=== PATIENT | male | born 1940 | race Caucasian/White ===

== ENCOUNTER → 2021-11-02 14:51 | Outpatient (CLI) | payer MEDICARE, SELFPAY | PROVIDERS: PCP Internal Medicine; Visit Provider Urology | DX: R30.0 Dysuria (principal); R31.29 Other microscopic hematuria; I70.90 Unspecified atherosclerosis; Z87.891 Personal history of nicotine dependence | CPT/HCPCS: 81002; 87086; 99213 ==

== ENCOUNTER → 2021-12-27 14:24 | Outpatient (CLI) | payer MEDICARE, SELFPAY ==
[2021-12-27 14:55] LABS: COVID19 -Nasal RAPID Negative (Negative)
== END ==
PROVIDERS: PCP Internal Medicine; Visit Provider Urology
DX: Z20.822 Contact with and (suspected) exposure to COVID-19 (principal); C67.1 Malignant neoplasm of dome of bladder; R31.29 Other microscopic hematuria; Z87.891 Personal history of nicotine dependence
CPT/HCPCS: 81002; 87635; 99215

== ENCOUNTER 2021-12-30 12:33 | Day surgery (SDC) | payer MEDICARE, SELFPAY ==
[2021-12-28 14:53] VITALS: BMI 29.2
[2021-12-30] VITALS (11 sets, daily range): BP systolic 152–169; BP diastolic 52–75; PULSE 47–58; RESP 15–18; TEMP 36.2–37.2; O2SAT 93–99; BMI 29.2
--- NOTE | 2021-12-30 | PATH_ITS ---
[facility] Accession Number: [id number] . 01 Material submitted: . bladder, dome - DOME OF BLADDER . 02 Diagnosis: Bladder, Dome, TURBT: Low-grade papillary urothelial carcinoma, noninvasive; see Cancer Case Summary. . . CASE CASE SUMMARY - URINARY BLADDER Procedure: TURBT. Tumor site: Dome. Histologic type: Papillary urothelial carcinoma, noninvasive. Histologic grade: Low grade. Tumor extent: Noninvasive papillary carcinoma. Lymphovascular invasion: Not identified. Muscularis propria presence: Muscularis propria not identified. MRV 01/02/2022 1354 Local . 02 Comment: As part of routine quality control, Dr. Rubi has reviewed this case and agrees with the diagnosis of low-grade papillary urothelial carcinoma. . 02 Electronically signed: . Fitz Ayala MD, PhD, Pathologist NPI- [id number] . 01 Gross description: . DOME OF BLADDER: Received in formalin are 3 fragment(s) of shay, soft tissue measuring 0.3 x 0.3 x 0.2 cm to 0.3 x 0.2 x 0.2 cm submitted entirely in 1 cassette(s) /CPE 12/31/2021 0851 Local . 02 Pathologist provided ICD-10: C67.9 . 02 CPT . 467270 Specimen Comment: A courtesy copy of this report has been sent to [phone] Performed at: 01 [facility] [address] [place] [address], [place], [place] [id number] MD Toy Marquez MD Phone: [phone] Performed at: 02 [facility] [address] [place], [place] [id number] MD Gina Rubi MD Phone: [phone]
[2021-12-30] MEDS: LACTATED RINGERS 1,000 ML 25 ML IV (13:21)
--- NOTE | 2021-12-30 13:37 | SUR.OPER ---
Lithotomy on padded OR bed, head on pillow, arms secured on padded arm boards at <90 degrees abduction. Legs secured in padded yellow fins stirrups.
--- NOTE | 2021-12-30 13:44 | PM.PREOP ---
Pre-operative Note COVID-19 COVID-19 status: Negative Result date/Date tested (Pos, Neg/Pending): 12/27/21 Criteria for continued procedure: Expected advancement of disease process, Possibility delay results in more complex future surgery or treatment, Delay expected to result in less-positive ultimate med/surg outcome and Non-surgical alternatives not available or appropriate per current SOC Interval Note History & Physical reviewed/Exam performed by Physician: Yes Changes to H&P: No
[2021-12-30] MEDS: CEFAZOLIN 2 GM/20 ML SYRINGE IV (13:50)
[2021-12-30] MEDS: BELLADONNA/OPIUM SUPPOSITORIES 1 EACH PR (14:01)
[2021-12-30] MEDS: mitoMYcin 20 MG in WATER FOR INJECTION 20 ML 240 ML INTRAVESIC (14:40)
--- NOTE | 2021-12-30 15:03 | P.OP_ITS ---
Procedure & Clinicians Procedure: Cystoscopy, transurethral resection of bladder tumor with cauterization and installation of mitomycin. Same procedure as scheduled: Yes Indications: This is an 81-year-old male who was found to have tumor in his bladder after workup for hematuria and presents at this time for the above procedure. Patient has been covered with antibiotics. Surgeon: Bharath Jay Click Yes if Unassisted: Yes Anesthesia Type: General Operative Notes Findings: Urethra normal prostatic fossa was shows moderate approaching severe obstructive character. Ureteral orifices in normal position with clear efflux. The floor lateral campo were with normal mucosa. Anteriorly and toward the dome was a ?field of ?tumor. 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 This was quite extensive. Because of the extent and being in the dome the tumor I do not believe was completely excised and the patient will likely require further treatment. A [address] [place] [address] hematuria catheter was left in place with 30+ cc in the balloon. Closure Type: not applicable Specimen(s): other (Director Environmental samples of the bladder tumor dome of bladder.) Applied: catheter (Twenty-four [place] Citizen 30 cc hematuria catheter 30+ cc in the balloon.) Estimated Blood Loss (mL): 15 Blood products transfused: none Procedure in detail: After informed consent was obtained, patient was identified and brought to the operating room. He was placed in a supine position on the table and anesthesia was induced to maintain. Patient was then transitioned to the lithotomy position. He was then prepped, draped and prepared for transurethral procedure. After prepping draping and assuring an adequate level of anesthesia a 21 [place] Citizen cystoscope was passed through the urethra prostate into the bladder. Cystoscopy was then performed. The biopsy forceps were then inserted and outside sales representative insurance samples were taken from the ?tumor field?. The resectoscope was then inserted with direct vision and using the loop and ?button? the tumor was cauterized, fulgurated and resected. This was done to the limit of my comfort. Hemostasis was then assured. The bladder was left full the scope was removed and the 24 [place] Citizen catheter was passed into the bladder without difficulty. The balloon was filled with approximately 33 cc. Mitomycin was then instilled in the catheter plugged. Patient was awakened having tolerated the procedure well just prior to awakening the patient received a B&O suppository. There were no complications patient will be Complications: none Post-operative Condition: stable Disposition: PACU Plan for aftercare: Patient to stay till the mitomycin time limit is achieved and then he will be discharged to home to follow up my office in approximately 10-14 days.
[2021-12-30] MEDS: fentaNYL 100 MCG/2 ML INJ IV (15:21)
[2021-12-30] MEDS: HYDROCODONE/ACET 5/325 TABLET 1 TAB PO (15:23)
[2021-12-30] MEDS: OXYBUTYNIN 5 MG TABLET PO (15:24)
[2021-12-30] MEDS: PHENAZOPYRIDINE 100 MG TABLET 200 MG PO (15:25)
--- NOTE | 2021-12-30 16:23 | SUR.PHASEII ---
1601 To OPD, assisted patient in turning prone. OR gel pads under bilateral shoulders for comfort. Patient is comfortable other than the feeling of bladder distension - rates that pain at 6/7, otherwise denies having pain. Call light within reach of right hand. Declines PO pain medication.
--- NOTE | 2021-12-30 16:39 | SUR.PHASEII ---
1630 Turned to right side
--- NOTE | 2021-12-30 17:51 | SUR.PHASEII ---
1600 Scott drained of mitomycin per protocol. Scott connected to large bag, leg bag, and instructions reviewed with patient and Jennifer. All questions answered. Urine slightly darker than watermenon red, no clots, encouraged fluid intake to keep urine light colored
--- NOTE | 2021-12-30 17:58 | SUR.PHASEII ---
1615 Patient advised not to resume aspirin until the follow-up appointment with Dr. Jay. Dr's office will call them next week to schedule post-op appointment.
== END 2021-12-30 17:44 | disposition home or self-care (01) ==
PROVIDERS: PCP Internal Medicine; Referring Provider Urology; Visit Provider Urology
PROC: 0TBB8ZZ Excision of Bladder, Via Natural or Artificial Opening Endoscopic (ICD-10-PCS; CPT 52240; principal; 2021-12-30 14:00)
DX: C67.9 Malignant neoplasm of bladder, unspecified (principal); R31.29 Other microscopic hematuria; Z87.891 Personal history of nicotine dependence
CPT/HCPCS: 52240; 82962; J0690; J2250; J2405; J2704; J3010; J9280

== ENCOUNTER → 2022-03-16 13:58 | Outpatient (CLI) | payer MEDICARE, SELFPAY ==
[2022-03-16 15:09] LABS: COVID19 -Nasal RAPID Negative (Negative)
== END ==
PROVIDERS: PCP Internal Medicine; Visit Provider Urology
DX: Z20.822 Contact with and (suspected) exposure to COVID-19 (principal)
CPT/HCPCS: 87635

== ENCOUNTER → 2022-05-31 11:12 | Outpatient (CLI) | payer MEDICARE, SELFPAY | PROVIDERS: PCP Urology; Visit Provider Urology | DX: R30.0 Dysuria (principal); C67.1 Malignant neoplasm of dome of bladder; N35.912 Unspecified bulbous urethral stricture, male | CPT/HCPCS: 51798; 52000; 81002; 87086 ==

== ENCOUNTER → 2022-05-31 12:02 | Outpatient (ROUT) | payer MEDICARE, SELFPAY | PROVIDERS: Visit Provider Urology | DX: R30.0 Dysuria (principal) | CPT/HCPCS: 87086 ==

== ENCOUNTER 2022-08-15 10:23 | Day surgery (SDC) | payer MEDICARE, SELFPAY ==
[2022-08-15] VITALS (11 sets, daily range): BP systolic 116–162; BP diastolic 50–72; PULSE 52–68; RESP 10–16; TEMP 36.1–36.8; O2SAT 91–97; BMI 28.1
--- NOTE | 2022-08-15 | PATH_ITS ---
[facility] Accession Number: [id number] . 01 Material submitted: . PART A: bladder, dome - BLADDER MID DOME PART B: bladder, dome - RIGHT LATERAL DOME BLADDER PART C: bladder, dome - RIGHT DOME BLADDER PART D: bladder, dome - BLADDER DOME . 01 Diagnosis: A. Bladder, Mid Dome, TURBT: High-grade papillary urothelial carcinoma, noninvasive. . B. Bladder, Right Lateral Dome, TURBT: Low-grade papillary urothelial carcinoma, noninvasive. . C. Bladder, Right Dome, TURBT: Urothelial mucosa with mild atypia. Negative for in situ or invasive carcinoma. . D. Bladder, Dome, TURBT: Low-grade papillary urothelial carcinoma, noninvasive. [facility] 08/21/2022 1343 Local . 01 Comment: As part of routine head of quality, Dr. Rubi has reviewed this case and agrees with the diagnosis of papillary urothelial carcinoma. . 01 Electronically signed: . Fitz Ayala MD, PhD, Pathologist NPI- [id number] . 01 Gross description: . Part A: BLADDER MID DOME: Received in formalin is 1 fragment(s) of shay, soft tissue measuring 0.3 x 0.2 x 0.2 cm submitted entirely in 1 cassette(s) Part B: RIGHT LATERAL DOME BLADDER: Received in formalin are 3 fragment(s) of shay, soft tissue measuring 0.5 x 0.3 x 0.2 cm to 0.1 x 0.1 x 0.1 cm submitted entirely in 1 cassette(s) Part C: RIGHT DOME BLADDER: Received in formalin is 1 fragment(s) of shay, soft tissue measuring 0.4 x 0.2 x 0.2 cm submitted entirely in 1 cassette(s) Part D: BLADDER DOME: Received in formalin is 1 fragment(s) of shay, soft tissue measuring 0.2 x 0.2 x 0.1 cm submitted entirely in 1 cassette(s) /CPE 08/16/2022 1117 Local . 01 Pathologist provided ICD-10: C67.9 . 01 CPT . 656059, 467807, 026010, 666015 Specimen Comment: A courtesy copy of this report has been sent to [phone] Performed at: 01 [facility] [address] [place] [address], [place], [place] [id number] MD Toy Marquez MD Phone: [phone]
[2022-08-15 11:02] LABS: COVID19 -Nasal RAPID Negative (Negative)
[2022-08-15] MEDS: LACTATED RINGERS 1,000 ML 21 ML IV (11:34)
--- NOTE | 2022-08-15 12:31 | PM.PREOP ---
Pre-operative Note COVID-19 COVID-19 status: Negative Result date/Date tested (Pos, Neg/Pending): 08/15/22 Criteria for continued procedure: Delay expected to result in less-positive ultimate med/surg outcome and Non-surgical alternatives not available or appropriate per current SOC Interval Note History & Physical reviewed/Exam performed by Physician: Yes Changes to H&P: No
[2022-08-15] MEDS: CEFAZOLIN 2 GM/100 ML PREMIX 100 ML IV (12:51)
--- NOTE | 2022-08-15 13:14 | SUR.OPER ---
Lithotomy on padded OR bed, head on pillow, arms secured on padded arm boards at <90 degrees abduction. Legs secured in padded yellow fins stirrups.
[2022-08-15] MEDS: WATER FOR INJECTION,STERILE 20 ML, mitoMYcin 20 MG INTRAVESIC (14:03)
--- NOTE | 2022-08-15 14:13 | P.OP_ITS ---
Procedure & Clinicians Procedure: Transurethral resection of bladder tumor, bladder biopsy, fulguration, installation of mitomycin Same procedure as scheduled: Yes Indications: This is an 81-year-old male with known bladder cancer came in for surveillance cystoscopy and appeared to have recurrence in the dome of his bladder. He presents for the above procedure. Surgeon: Bharath Jay Click Yes if Unassisted: Yes Anesthesia Type: General Operative Notes Findings: Urethra normal to the proximal to mid bulbar urethra where there is stricture that return assess sedated dilation due to a slight recurrence. This was to allow the scope to pass. Prostate shows moderate obstructive character. In the dome of the bladder there was some red velvety changes that were worrisome for CIS which were biopsied there were also 2 papillary lesions which were resected that also appeared to be recurrent tumor. These were all in the dome primarily on the right side 22 [place] 5 cc Scott catheter left in place with 14 cc in the balloon and patient also had mitomycin instilled with his bladder at the end of the case. Closure Type: not applicable Specimen(s): other (Bladder tumor multiple sites) Applied: catheter (22 [place] 5 cc Scott catheter) Estimated Blood Loss (mL): 20 Procedure in detail: Procedure in detail: After informed consent, the patient was identified and brought to the operating room worries placed in a supine position on table. Anesthesia was induced to maintain the patient was transitioned to the lithotomy position. Once there he was checked for stability. He was then prepped, draped, prepared for transurethral procedure. After time-out and ensuring an adequate level of anesthesia a 22 [place] cystoscope was passed through the urethra to the level of stricture this would not allow the scope to pass through therefore Jakob sounds were employed and the urethra was dilated from 20-26 Beninese. The cystoscope was it easily passed through the urethra prostate in the bladder were cystoscopy was performed. The lesions were identified and the biopsy forceps was inserted and the 2 tumors were resected and biopsies taken as indicated in the samples. The cystoscope was then removed and the resectoscope was passed through the urethra in bladder under direct vision. The direct vision obturator was exchanged for the working element and using the button the base of each of the lesions and biopsy sites was fulgurated obtaining hemostasis. Then all abnormal mucosal tissue was fulgurated with the button. The resectoscope removed and a cystoscope was reinserted and cystoscopy performed with 30 and 70 degree lens. With appearing an adequate resection and destruction of abnormal tissue the scope was removed after the bladder was drained. A 22 [place] 5 cc Scott catheter was then easily passed into the bladder the balloon filled with 14 cc of sterile water. The mitomycin was then instilled via the appropriate equipment. The plug was then left in place. At this point the patient was awakened having tolerated the procedure well, taken to the postanesthesia care unit for recovery. There were no complications Complications: none Post-operative Condition: stable Disposition: PACU Plan for aftercare: Patient to be discharged to home after mitomycin is drained. He is to be discharged home with his Scott catheter to follow up my office in approximately 2 weeks.
[2022-08-15] MEDS: OXYBUTYNIN 5 MG TABLET PO (14:43)
[2022-08-15] MEDS: PHENAZOPYRIDINE 100 MG TABLET 200 MG PO (14:43)
[2022-08-15] MEDS: ACETAMINOPHEN 325 MG TABLET 650 MG PO (15:10)
--- NOTE | 2022-08-15 15:38 | SUR.PHASEII ---
Report given to Marilu.
== END 2022-08-15 16:45 | disposition home or self-care (01) ==
PROVIDERS: Referring Provider Urology; Visit Provider Urology
PROC: 0TBB8ZZ Excision of Bladder, Via Natural or Artificial Opening Endoscopic (ICD-10-PCS; CPT 52235; principal; 2022-08-15 12:45)
DX: C67.1 Malignant neoplasm of dome of bladder (principal); Z87.891 Personal history of nicotine dependence; Z20.822 Contact with and (suspected) exposure to COVID-19
CPT/HCPCS: 52235; 82962; 87635; C9803; J0690; J1170; J2405; J2704; J3010; J9280

== ENCOUNTER 2022-09-12 11:23 | Day surgery (SDC) | payer MEDICARE, SELFPAY ==
[2022-09-12] VITALS (10 sets, daily range): BP systolic 129–173; BP diastolic 51–66; PULSE 48–66; RESP 10–16; TEMP 36.1–36.4; O2SAT 95–98; BMI 28.1
--- NOTE | 2022-09-12 | PATH_ITS ---
[facility] Accession Number: [id number] . 01 Material submitted: . bladder, dome - DOME OF BLADDER . 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 No invasive malignancy identified. MRV 09/14/2022 1235 Local . 01 Comment: As part of routine software quality analyst, Dr. Rubi has reviewed this case and agrees with the diagnosis of carcinoma in situ without invasive malignancy. . 01 Electronically signed: . Fitz Ayala MD, PhD, Pathologist NPI- [id number] . 01 Gross description: . DOME OF BLADDER: Received in formalin is 1 fragment(s) of shay, soft tissue measuring 0.7 x 0.3 x 0.1 cm which is bisected and submitted entirely in 1 cassette(s) /CPE 09/13/2022 0945 Local . 01 Pathologist provided ICD-10: D09.0 . 01 CPT . 809248 Specimen Comment: A courtesy copy of this report has been sent to [phone] Performed at: 01 [facility] [address] [place] [address], [place], [place] [id number] MD Toy Marquez MD Phone: [phone]
[2022-09-12 12:56] LABS: COVID19 -Nasal RAPID Negative (Negative)
--- NOTE | 2022-09-12 13:16 | PM.PREOP ---
Pre-operative Note COVID-19 COVID-19 status: Negative Result date/Date tested (Pos, Neg/Pending): 09/12/22 Criteria for continued procedure: Delay expected to result in less-positive ultimate med/surg outcome and Non-surgical alternatives not available or appropriate per current SOC Interval Note History & Physical reviewed/Exam performed by Physician: Yes Changes to H&P: No
[2022-09-12] MEDS: CEFAZOLIN 2 GM/100 ML PREMIX 100 ML IV (13:50)
--- NOTE | 2022-09-12 14:04 | SUR.OPER ---
Lithotomy on padded OR bed, head on pillow, arms secured on padded arm boards at <90 degrees abduction. Legs secured in padded yellow fins stirrups.
[2022-09-12] MEDS: WATER FOR INJECTION,STERILE 20 ML, mitoMYcin 20 MG INTRAVESIC (14:25)
--- NOTE | 2022-09-12 14:31 | P.OP_ITS ---
Procedure & Clinicians Procedure: Cystoscopy with bladder biopsy and fulguration, Scott catheter placement and mitomycin installation. Same procedure as scheduled: Yes Indications: This 81-year-old male had recently undergone a Transurethral resection of bladder tumor which returned with a new finding of high-grade noninvasive bladder cancer. His previous pathology had been low-grade noninvasive tumor. He comes at this point to assess the previous resection for bladder biopsy of any suspicious areas and then fulguration of any apparent residual lesions. Surgeon: Bharath Jay Click Yes if Unassisted: Yes Anesthesia Type: General Operative Notes Findings: Urethra normal to the proximal bulbar urethra where there was a large caliber somewhat recurrent stricture that was easily dilated with the scope. Prostate shows obstructive character with some bulging into the bladder. Ureteral orifices in normal position with clear efflux. In the dome of the bladder there was eschar in areas of healing there was 1 erythematous somewhat papillary looking area that was biopsied this was labeled dome of bladder. There was significant erythema and some bullous edema around the bladder and the findings are somewhat concerning. Patient appears to be having progression of his tumor.. All obvious and suspicious areas were fulgurated with the gyrus ?button?. Twenty-two [place] 5 cc Scott catheter was left in place with 14 cc in the balloon and the mitomycin was instilled and left in place. Closure Type: not applicable Specimen(s): other (Biopsy lesion dome of bladder) Applied: catheter ([address] [place] [address] Scott catheter with 14 cc in the balloon) Estimated Blood Loss (mL): 10 Blood products transfused: none Procedure in detail: Procedure in detail: After informed consent was obtained, the patient was identified and brought to the operating room where he was placed in a supine position on the table. Patient then had anesthesia induced and maintained. Ensuring an adequate level of anesthesia the patient was transitioned to the lithotomy position. Once in lithotomy position he was prepped, draped, prepared for Transurethral procedure. After prepping draping ensuring an adequate level of anesthesia a 22 [place] cystoscope was passed through the urethra prostate and bladder under direct vision cystoscopy was performed with 30 and 70 degree lens. The biopsy forceps was inserted in the 1 area in the dome that was somewhat papillary in appearance was biopsied. The resectoscope was then inserted and then using the button hemostasis was achieved and areas of erythema that appears somewhat velvety were fulgurated. With this completed the bladder was left full the scope was removed and the 22 [place] catheter passed through the urethra and into the bladder without difficulty. It was filled that is the balloon was filled with 14 cc of sterile water. Mitomycin was then instilled the patient was awakened having tolerated the procedure well there were no complications and the patient was transferred to the postanesthesia care unit for recovery. Complications: none Post-operative Condition: stable Disposition: PACU Plan for aftercare: After the appropriate dwell time for the mitomycin the patient is to be discharged home with his Scott catheter to follow-up in approximately 10 days for Scott catheter removal and voiding trial.
== END 2022-09-12 17:10 | disposition home or self-care (01) ==
PROVIDERS: PCP Hospitalist; Referring Provider Urology; Visit Provider Urology
PROC: 0TBB8ZZ Excision of Bladder, Via Natural or Artificial Opening Endoscopic (ICD-10-PCS; CPT 52214; principal; 2022-09-12 14:00)
DX: D09.0 Carcinoma in situ of bladder (principal); N35.912 Unspecified bulbous urethral stricture, male; Z79.01 Long term (current) use of anticoagulants; Z20.822 Contact with and (suspected) exposure to COVID-19
CPT/HCPCS: 52214; 82962; 87635; C9803; J0690; J2405; J2704; J3010; J9280